=== PATIENT | female | born 1960 | race Caucasian/White ===

== ENCOUNTER 2016-12-13 23:03 | Observation (INO) | payer OTHER ==
[~2016-12-13] VITALS: Ht 180.3 cm; Wt 89.7 kg
[~2016-12-13 23:03] MED LIST: ANTISEPTIC SKI237 ML TP; CLINDAMYCIN HC300 MG PO; LIPITOR20 MG PO; LISINOPRIL5 MG PO
[2016-12-13 23:21] LABS: HEMATOCRIT 39.5 % (36.0-46.0); MCH 28.7 PG (29.0-34.0); MCHC 33.2 G/DL (30.0-36.0); MCV 86.6 FL (83-99); MEAN PLAT.VOLUME 10.5 uM^3 (9.5-12.4); PLATELET COUNT 221 K/uL (156-360); RBC DIS.WIDTH-CV 14.1 % (11.8-14.6); RBC DIS.WIDTH-SD 43.9 % (39-53); RED BLOOD COUNT 4.56 M/uL (3.80-5.20); WHITE BLOOD COUNT 10.6 K/uL (4.1-10.2)
[2016-12-13 23:32] LABS: CHLORIDE 107 mEq/L (99-109); POTASSIUM 3.5 mEq/L (3.7-5.4); SODIUM 142 mEq/L (136-147)
[2016-12-13 23:34] LABS: GLUCOSE 115 mg/dL (70-99)
[2016-12-13 23:36] LABS: ANION GAP 11 MEQ/L (2-14); TOTAL BILIRUBIN 0.4 mg/dL (0.0-1.0)
[2016-12-13 23:38] LABS: ALKALINE PHOSPHATASE 94 IU/L (3-129); GFR ESTIMATE (CALCULATED) > 59 mL/min/
[2016-12-13 23:39] LABS: UREA NITROGEN (BUN) 10 mg/dL (9-23)
[2016-12-13 23:47] LABS: QUANTITATIVE HCG < 4.0 MIU/ML
[2016-12-13] MEDS ORDERED: MELOXICAM7.5 MG PO (23:54)
[2016-12-13] MEDS ORDERED: SINGULAIR10 MG PO (23:56)
[2016-12-13] MEDS ORDERED: ZYRTEC10 M2 PO (23:56)
[2016-12-13] MEDS ORDERED: VITAMIN D2000 UNI1 PO (23:57)
[2016-12-14 00:48] LABS: ADD MIUA? YES; BILIRUBIN NEGATIVE; BLOOD NEGATIVE; COLOR YELLOW ((YELLOW)); GLUCOSE (STRIP) NEGATIVE; KETONES NEGATIVE; LEUKOCYTES SMALL; NITRITE NEGATIVE; PH, URINE 6.5 (5-8); PROTEIN (STRIP) NEGATIVE; SPECIFIC GRAVITY 1.014 (1.000-1.030); UROBILINOGEN 0.2 MG/DL (0.2-1.0)
[2016-12-14 01:37] LABS: RED BLOOD CELLS NONE SEEN /HPF (0-5); WHITE BLOOD CELLS 0-5 /HPF (0-5)
[2016-12-14 01:38] LABS: BACTERIA RARE; CASTS NONE SEEN /LPF; CRYSTALS NONE SEEN; EPITHELIAL CELLS RARE; MUCUS NONE SEEN; UCUL ADDED? NO
[2016-12-14] MEDS ORDERED: TYLENOL EXTRA500 MG PO (01:48)
[2016-12-14] MEDS ORDERED: MECLIZINE HCL25 MG PO (01:48)
[2016-12-14] MEDS ORDERED: VENTOLIN HFA18 GM IH (01:48)
[2016-12-14 03:39] VITALS: BP 122/73
[2016-12-14 03:41] LABS: INFLUENZA A VIRAL ANTIGEN NEGATIVE; INFLUENZA B VIRAL ANTIGEN NEGATIVE
[2016-12-14] MEDS ORDERED: LIPITOR20 MG PO (04:17)
[2016-12-14 05:35] LABS: HDL CHOLESTEROL 27 MG/DL (Desirable>=50); LDL CHOLESTEROL 121 mg/dL (Desirable<100); NON-HDL CHOLESTEROL 176 mg/dL (Desirable<160); TOTAL CHOLESTEROL 203 mg/dL (Desirable<200); TRIGLYCERIDES 277 MG/DL (Normal: <150)
[2016-12-14 08:30] VITALS: BP 123/76
[2016-12-14 08:44] LABS: Estimated Average Glucose 114 mg/dL (70-123); HEMOGLOBIN A1c (GLYCOHEMOGLOB) 5.6 % HGB (Below 5.7)
[2016-12-14] MEDS ORDERED: ATORVASTATIN CA80 MG PO (11:13)
[2016-12-14] MEDS ORDERED: ASPIR-LOW81 MG PO (11:13)
[2016-12-14 12:45] VITALS: BP 122/76
== END 2016-12-14 14:34 | disposition home or self-care (01) ==
LOC: EME 23:03 → EDOF 12-14 01:49 → 5WEST 12-14 03:14
PROVIDERS: Physician Assistant Medical
DX: H53.8 Other visual disturbances (principal); R42 Dizziness and giddiness; I65.22 Occlusion and stenosis of left carotid artery; E78.5 Hyperlipidemia, unspecified; T46.6X6A Underdosing of antihyperlipidemic and antiarteriosclerotic drugs, initial encounter; Z91.138 Patient's unintentional underdosing of medication regimen for other reason; F17.200 Nicotine dependence, unspecified, uncomplicated; Z85.3 Personal history of malignant neoplasm of breast; Z85.41 Personal history of malignant neoplasm of cervix uteri; Z82.3 Family history of stroke; Z82.49 Family history of ischemic heart disease and other diseases of the circulatory system; Z86.14 Personal history of Methicillin resistant Staphylococcus aureus infection; J30.9 Allergic rhinitis, unspecified; Z83.3 Family history of diabetes mellitus; Z84.1 Family history of disorders of kidney and ureter; Z88.1 Allergy status to other antibiotic agents; Z91.018 Allergy to other foods
CPT/HCPCS: 70450; 70486; 70551; 80053; 80061; 81003; 83036; 84702; 85027; 87502; 93005; 93306; 93880; 99202; 99281; 99285; G0378; J1650

== ENCOUNTER 2017-02-06 07:27 | Day surgery (SDC) | payer OTHER ==
[~2017-02-06] VITALS: Ht 156.2 cm; Wt 85.7 kg
[~2017-02-06 07:27] MED LIST changes: +ASPIR-LOW81 MG PO; +ATORVASTATIN CA80 MG PO; +MECLIZINE HCL25 MG PO; +MELOXICAM7.5 MG PO; +SINGULAIR10 MG PO; +TYLENOL EXTRA500 MG PO; +VENTOLIN HFA18 GM IH; +VITAMIN D2000 UNI1 PO; +ZYRTEC10 M2 PO
== END 2017-02-06 13:13 | disposition home or self-care (01) ==
LOC: CATH 07:27
PROC: 03743ZZ Dilation of Left Subclavian Artery, Percutaneous Approach (ICD-10-PCS; principal; 2017-02-06)
DX: I77.1 Stricture of artery (principal); M79.622 Pain in left upper arm; R42 Dizziness and giddiness; Z86.73 Personal history of transient ischemic attack (TIA), and cerebral infarction without residual deficits; I65.23 Occlusion and stenosis of bilateral carotid arteries; M19.90 Unspecified osteoarthritis, unspecified site; Z85.41 Personal history of malignant neoplasm of cervix uteri; E78.5 Hyperlipidemia, unspecified; F17.200 Nicotine dependence, unspecified, uncomplicated; Z68.35 Body mass index [BMI] 35.0-35.9, adult
CPT/HCPCS: C1725; C1750; C1760; C1769; C1887; C1894; J1644; J2250; J3010; S0020